=== PATIENT | male | born 1980 | race Two or more races ===

== ENCOUNTER 2025-03-18 11:12 | Emergency (ER) | payer OTHER ==
[~2025-03-18] VITALS: Ht 188 cm; Wt 113.1 kg
--- NOTE | 2025-03-18 13:24 | ED.PDOC ---
Musculoskeletal HPI Comments 45-year-old male presents to the ER with a chief complaint of UE. 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 Patient is unable to flex his 5th PIP without assistance. Denies any other symptoms at this time. Chief Complaint: Upper Extremity Time Seen by MD: 13:20 Reviewed Notes: Nurses Notes, Medications, Allergies Allergies: Coded Allergies: Brompheniramine (Verified Allergy, Severe, 03/18/25) Phenylpropanolamine (Verified Allergy, Severe, 03/18/25) Varenicline (Verified Allergy, Severe, 03/18/25) Uncoded Allergies: DONAGEL (Allergy, Severe, 03/18/25) Information Source: Patient Mode of Arrival: Ambulatory Location: Right Extremity Location: [place] Timing: Hours Prehospital treatment: None Severity: Moderate Able to Move Extremity: No Bear Weight: Limited Pain: Severe Hand Dominance: Right Mechanism: Unknown, Spontaneous Circumstances: Spontaneous Onset of Symptoms: Spontaneous Symptoms: Pain DVT Risk Factors: NONE Associated signs and symptoms: None Past Medical History PAST MEDICAL HISTORY: Denies Surgical History: Denies all surgeries Family History Family History: Reviewed,noncontributory to illness, Unknown Social History Smoker: Non-Smoker Alcohol: Denies ETOH Use Drugs: Denies Drug Use Lives In: Home Constitutional: denies: chills, diaphoresis, fatigue, fever, malaise, sweats, weakness, others EENTM: denies: blurred vision, double vision, ear bleeding, ear discharge, ear drainage, ear pain, ear ringing, eye pain, eye redness, hearing loss, mouth pain, mouth swelling, nasal discharge, nose bleeding, nose congestion, nose pain, photophobia, tearing, throat pain, throat swelling, voice changes, others Respiratory: denies: cough, hemoptysis, orthopnea, SOB at rest, shortness of breath, SOB with excertion, stridor, wheezing, others Cardiovascular: denies: chest pain, dizzy spells, diaphoresis, Dyspnea on exertion, edema, irregular heart beat, left arm pain, lightheadedness, palpitations, PND, syncope, others Gastrointestinal: denies: abdomen distended, abdominal pain, blood streaked bowels, constipated, diarrhea, dysphagia, difficulty swallowing, hematemesis, melena, nausea, poor appetite, poor fluid intake, rectal bleeding, rectal pain, vomiting, others Genitourinary: denies: burning, dysuria, flank pain, frequency, hematuria, incontinence, penile discharge, penile sore, pain, testicle pain, testicle swelling, urgency, others Neurological: denies: dizziness, fainting, headache, left sided numbness, left sided weakness, numbness, paresthesia, pre-existing deficit, right sided numbness, right sided weakness, seizure, speech problems, tingling, tremors, weakness, others Musculoskeletal: reports: others (Right hand 5th PIP); denies: back pain, gout, joint pain, joint swelling, muscle pain, muscle stiffness, neck pain Integumetry: denies: bruises, change in color, change in hair/nails, dryness, laceration, lesions, lumps, rash, wounds, others Allergic/Immunocompromised: denies: Difficulty Healing, Frequent Infections, Hives, Itching, others Hematologic/Lymphatic: denies: anemia, blood clots, easy bleeding, easy bruising, swollen glands, others Endocrine: denies: excessive hunger, excessive sweating, excessive thirst, excessive urination, flushing, intolerance to cold, intolerance to heat, unexplained weight gain, unexplained weight loss, others Psychiatric: denies: anxiety, bipolar disorder, depression, hopeless, panic disorder, schizophrenia, sleepless, suicidal, others All Other Systems: Reviewed and Negative Physical Exam Exam Comments Right hand 5th PIP, flexed at rest, unable to extend PIP without assistance, no visible deformity, neurovascular sensation intact cap refill less than three General Appearance: No Apparent Distress, Normal HEENT: Normal ENT Inspection, Pharynx Normal, TMs Normal Neck: Full Range of Motion, Non-Tender, Normal, Normal Inspection Respiratory: Chest Non-Tender, Lungs Clear, No Accessory Muscle Use, No Respiratory Distress, Normal Breath Sounds Cardiovascular: No Edema, No JVD, No Murmur, No Gallop, Normal Peripheral Pulses, Regular Rate/Rhythm Breast Exam: Deferred Gastrointestinal: No Organomegaly, Non Tender, No Pulsatile Mass, Normal Bowel Sounds, Soft Genitalia: Deferred Pelvic: Deferred Rectal: Deferred Extremities: No calf tenderness, Normal capillary refill, Normal inspection, Normal range of motion, Non-tender, No pedal edema Musculoskeletal : Apperance: Normal Neurologic: Alert, 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 Was a procedure done?: No Differential Diagnosis EXT Differential Diagnosis: Fracture, Sprain, Strain X-Ray, Labs, Meds, VS Vital Signs Date Time Temp Pulse Resp B/P (MAP) Pulse Ox O2 Delivery O2 Flow Rate FiO2 03/18/25 14:20 84 16 98 Room Air 03/18/25 14:20 98.2 84 16 138/74 (95) 98 98.2 03/18/25 11:14 98.1 98 15 140/76 98 98.1 PATIENT: CALLIE LAGUNAS: [id number]: [id number] : 1980 LOC: ER ROOM / BED: / AGE / SEX: 45 / M ADM STATUS: REG ER SERVICE [id number] ORDERING PHYSICIAN: AIME SCHERER NP PROCEDURE(s): RHAN - R HAND 3 VIEW XRAY REASON: pain to the 5th PIP ORDER NUMBER(s): [id number], ACCESSION NUMBER(s): [id number] CLINICAL INDICATION: pain to the 5th PIP TECHNIQUE: XY R HAND 3 VIEW XRAY Comparison: None FINDINGS/IMPRESSION: : There is no evidence of acute fracture or dislocation. Soft tissues are unremarkable. ATED BY: MARCELINO KERNS MD DICTATED DATE/TIME: 03/18/251319 SIGNED BY: MARCELINO KERNS MD SIGNED DATE/TIME: 03/18/25 132 X-Ray, Labs, Meds, VS Comment 45-year-old male presents to the ER with a chief complaint of UE. Patient arrives alert and oriented, ABC's intact, afebrile, vital signs stable, saturating well in room air Diagnostic imaging ordered by me and results interpreted by radiology : X-ray right hand The patient's injury is high suspicion for mallet finger. X-ray shows no evidence of any fracture dislocation. Patient was placed in an aluminum finger splint , patient tolerated procedure well without any sequelae. Advised patient to keep the finger splint on until he was evaluated by Orthopedic Services. Re commended that patient placed ice over the affected extremity the 1st 3 days and elevate the affected extremity to decrease swelling. Patient is stable for discharge at this time. External notes reviewed. Test results and diagnostic imaging interpreted. All diagnostic findings, discharge care, education and instructions provided Follow-up with PCP in 2 to 3 days Patient verbalized understanding and agreed to treatment plan Vital signs stable, afebrile, no acute distress noted Patient ambulatory with strong steady gait Advised to return precautions for any new or worsening symptoms, return to ER immediately for re-evaluation Patient is aware that the purpose of this visit was for an acute medical emergency requiring emergent stabilization. Chronic conditions, including malignancies have not been ruled out. Patient is instructed to follow up with PCP as directed and discharge instructions for continued care and workup. If unable to arrange follow-up, patient is to return to the emergency department for reassessment. Patient (parent or legal guardian if applicable) was given verbal and written discharge instructions and acknowledges understanding. Additional MDM Review of External, Non-ED records: External records reviewed. Discussion with independent historian (EMS, family) history obtained from the patient/parents (if applicable) at bedside Chronic conditions affecting care: None Social determinants of health affecting care: None Consideration of admission (observation or admission): I considered escalation of care to admission for this patient, however given the reassuring workup, the patient is safe for outpatient management. Discussion with the Radiology: No Tests considered but not performed: Prescription medication considered but not given: 12 lead EKG interpretation: Time of 1ST Reevaluation: 13:50 Reevaluation 1ST: Unchanged Patient Education/Counseling: Diagnosis, Treatment, Prognosis Family Education/Counseling: No Family Present Departure 1 Departure Time of Disposition: 13:38 Impression: Primary Impression: Pain in finger of right hand Disposition: 01 HOME / SELF CARE / HOMELESS Condition: Stable Discharged With: Self Critical Care Note Critical Care Time?: No Stability Stability form required: No Heart Score Heart Score: Heart Score Response (Comments) Value History N/A 0 EKG N/A 0 Age N/A 0 Risk Factors N/A 0 Troponin N/A 0 Total 0 I personally scribed for AIME SCHERER NP ([email or web address]) on 03/18/25 at 13:23. Electronically submitted by Mann Hart ([email or web address]). AIME SCHERER NP Mar 18, 2025 13:23
[2025-03-18 14:20] VITALS: BP 138/74; PULSE 84; RESP 16; TEMP 98.2; O2SAT 98
== END 2025-03-18 14:22 | disposition home or self-care (01) ==
LOC: ER 11:12
DX: M79.644 Pain in right finger(s) (principal); Z91.09 Other allergy status, other than to drugs and biological substances
CPT/HCPCS: 29130; 73130